=== PATIENT | female | born 1975 | race Two or more races ===

== ENCOUNTER 2016-12-18 15:15 | Emergency (ER) | payer OTHER ==
[~2016-12-18] VITALS: Ht 172.7 cm; Wt 61.2 kg
--- NOTE | 2016-12-18 15:15 | NUR ---
vaginal bleeding x 2 weeks. nad noted. pt aao x4, ambulatory with steady gait. rr even and unlabored. vss. pending md briceno.
--- NOTE | 2016-12-18 15:40 | NUR ---
LAB AT BEDSIDE FOR BLOOD DRAW.
[2016-12-18 15:45] LABS: BASOPHILS % (AUTO) 0.5 % (0.0-2.0); EOSINOPHILS # (AUTO) 0.1 /CMM (0.0-0.7); EOSINOPHILS % (AUTO) 1.8 % (0.0-6.0); HEMATOCRIT 34 % (33-45); HEMOGLOBIN 11.6 g/dL (11.5-14.8); LYMPHOCYTES # (AUTO) 1.2 /CMM (0.8-4.8); LYMPHOCYTES % (AUTO) 17.3 % (20.0-44.0); MEAN CORPUSCULAR HEMOGLOBIN 31 PG (26.0-33.0); MEAN CORPUSCULAR HGB CONC 35 g/dl (31.0-36.0); MEAN CORPUSCULAR VOLUME 91 fL (82-100); MONOCYTES # (AUTO) 0.5 /CMM (0.1-1.30); MONOCYTES % (AUTO) 7.8 % (2.0-12.0); NEUTROPHILS # (AUTO) 5.2 /CMM (1.8-8.9); NEUTROPHILS % (AUTO) 72.6 % (43.0-81.0); PLATELET COUNT (AUTO) 300 /CMM (150-450); RDW COEFFICIENT OF VARIATION 11.7 (11.5-15.0); RED BLOOD CELL COUNT(AUTO) 3.72 MIL/uL (4.0-5.2)
--- NOTE | 2016-12-18 15:46 | NUR ---
PT PROVIDING URINE SAMPLE AT THIS TIME. SENT TO LAB
[2016-12-18 16:02] LABS: INR 1.07 (0.87-1.13); PROTHROMBIN TIME 11.1 SECS (9.5-12.7)
[2016-12-18 16:16] LABS: CALCIUM, SERUM 8.5 mg/dL (8.5-10.1); CREATININE 0.5 mg/dL (0.6-1.3); POTASSIUM 4.3 mmol/L (3.5-5.1)
[2016-12-18 17:12] VITALS: BP 111/70
== END 2016-12-18 17:14 | disposition home or self-care (01) ==
LOC: ER 15:17
DX: N92.6 Irregular menstruation, unspecified (principal); R79.1 Abnormal coagulation profile
CPT/HCPCS: 36415; 76856; 80048; 84703; 85025; 85730; 99285; A4606; Z7610

== ENCOUNTER 2020-10-25 18:49 | Emergency (ER) | payer OTHER ==
[~2020-10-25] VITALS: Ht 167.6 cm; Wt 63.5 kg
--- NOTE | 2020-10-25 19:50 | NUR ---
PT BIBSELF C/O LOWER ABD PAIN AND VAGINAL BLEEDING X12 DAYS. PT AAOX4 BREATHING EVENLY AND UNLABORED. PER PT, SHE HAS TO CHANGE HER TAMPON AND PAD EVERY HOUR AND THAT SHE IS PASSING LARGE CLOTS. PT ATTACHED TO MONITOR AND POX. MD AT BEDSIDE. PT GIVEN BALNKET AND CALL LIGHT WITHIN REACH
[2020-10-25] MEDS ORDERED: IBUPROFEN 600 MG TABLET PO ONE (20:00)
[2020-10-25] MEDS ORDERED: IBUPROFEN 600 MG TABLET ONE (20:05)
[2020-10-25 20:13] LABS: BASOPHILS % (AUTO) 0.3 % (0.0-2.0); EOSINOPHILS % (AUTO) 2.2 % (0.0-6.0); HEMATOCRIT 26 % (33-45); HEMOGLOBIN 8.8 g/dL (11.5-14.8); LYMPHOCYTES # (AUTO) 1.7 /CMM (0.8-4.8); LYMPHOCYTES % (AUTO) 22.9 % (20.0-44.0); MEAN CORPUSCULAR HGB CONC 33 g/dl (31.0-36.0); MEAN CORPUSCULAR VOLUME 90 fL (82-100); MONOCYTES # (AUTO) 0.6 /CMM (0.1-1.30); MONOCYTES % (AUTO) 8.4 % (2.0-12.0); NEUTROPHILS # (AUTO) 4.9 /CMM (1.8-8.9); NEUTROPHILS % (AUTO) 66.2 % (43.0-81.0); PLATELET COUNT (AUTO) 309 /CMM (150-450); RED BLOOD CELL COUNT(AUTO) 2.93 MIL/uL (4.0-5.2); WHITE BLOOD COUNT (AUTO) 7.4 K/uL (4.3-11.0)
--- NOTE | 2020-10-25 20:14 | NUR ---
US AT BEDSIDE
[2020-10-25 20:21] LABS: BILIRUBIN,URINE Negative (NEGATIVE); COLOR,URINE YELLOW (YELLOW); LEUKOCYTE ESTERASE ,URINE Negative (NEGATIVE); NITRITE, URINE Negative (NEGATIVE); PROTEIN,URINE Negative (NEGATIVE); UGLUCOSE Negative (NEGATIVE); UROBILINOGEN,URINE 0.2 EU/dL (0.2)
[2020-10-25 20:22] LABS: CALCIUM, SERUM 8.2 mg/dL (8.5-10.1); CREATININE 0.8 mg/dL (0.6-1.3); POTASSIUM 4.4 mmol/L (3.5-5.1)
[2020-10-25 20:31] LABS: BACTERIA,URINE Rare /HPF (None Seen); SQUAMOUS EPITHELIAL CELL,UR Few /HPF (None Seen); WBC,URINE NONE SEEN /HPF (0-3)
[2020-10-25] MEDS ORDERED: ACET325C7 PO (21:06)
--- NOTE | 2020-10-25 21:10 | NUR ---
Patient discharged to home in stable condition. Written and verbal after care instructions given. Patient verbalizes understanding of instruction.Pt ambulatory with a steady gait
[2020-10-25 21:12] VITALS: BP 107/66
== END 2020-10-25 21:10 | disposition home or self-care (01) ==
LOC: ER 18:52
DX: N93.9 Abnormal uterine and vaginal bleeding, unspecified (principal); D64.9 Anemia, unspecified
CPT/HCPCS: 36415; 76856-TC; 80048-TC; 81001; 84703-TC; 85025-TC